=== PATIENT | female | born 2000 | race Caucasian/White ===

== ENCOUNTER 2023-02-01 21:00 | Emergency (ER) | payer OTHER ==
[~2023-02-01] VITALS: Ht 167.6 cm; Wt 62.7 kg
[2023-02-01] MEDS ORDERED: ACETAMINOPHEN 500 MG TAB PO ONE (22:25)
[2023-02-01] MEDS ORDERED: IBUP-1022 PO (23:10)
[2023-02-01] MEDS ORDERED: ONDA4TAB6 PO (23:10)
[2023-02-01 23:15] VITALS: BP 107/53
== END 2023-02-01 23:31 | disposition home or self-care (01) ==
LOC: M ED 21:00 → EDBD 21:00 → M ED 23:31
DX: J06.9 Acute upper respiratory infection, unspecified (principal); Z79.83 Long term (current) use of bisphosphonates; Z79.1 Long term (current) use of non-steroidal anti-inflammatories (NSAID)

== ENCOUNTER 2023-07-16 20:57 | Emergency (ER) | payer OTHER ==
[~2023-07-16] VITALS: Ht 170.2 cm; Wt 63.6 kg
[~2023-07-16 20:57] MED LIST: IBUP-1022 PO; ONDA4TAB6 PO
[2023-07-16 22:04] LABS: RSV AMPLIFICATION NEGATIVE (NEGATIVE)
[2023-07-16] MEDS ORDERED: BENZONATATE 100MG CAPSULE PO ONE (23:40)
[2023-07-16] MEDS ORDERED: AMOXICILLIN 500 MG CAP PO ONE (23:40)
[2023-07-16] MEDS ORDERED: BENZ200C70 PO (23:43)
[2023-07-16] MEDS ORDERED: AMOX875T PO (23:43)
[2023-07-16 23:51] VITALS: BP 134/74; TEMP 98.1; O2SAT 97
== END 2023-07-16 23:52 | disposition home or self-care (01) ==
LOC: M ED 20:57
DX: J02.9 Acute pharyngitis, unspecified (principal); Z79.2 Long term (current) use of antibiotics; Z79.899 Other long term (current) drug therapy

== ENCOUNTER 2023-10-17 09:42 | Emergency (ER) | payer OTHER ==
[~2023-10-17] VITALS: Ht 167.6 cm; Wt 63.1 kg
[~2023-10-17 09:42] MED LIST changes: +AMOX875T PO; +BENZ200C70 PO
[2023-10-17 10:59] LABS: RSV AMPLIFICATION NEGATIVE (NEGATIVE)
[2023-10-17] MEDS: ACETAMINOPHEN TAB 650MG DOSE (2X325MG) PO ONE (11:37)
[2023-10-17 11:50] VITALS: BP 121/73; TEMP 96.5; O2SAT 98
== END 2023-10-17 11:52 | disposition home or self-care (01) ==
LOC: M ED 09:42
DX: B34.8 Other viral infections of unspecified site (principal); F17.200 Nicotine dependence, unspecified, uncomplicated; F10.10 Alcohol abuse, uncomplicated

== ENCOUNTER 2023-11-14 07:39 | Emergency (ER) | payer OTHER ==
[~2023-11-14] VITALS: Ht 170.2 cm; Wt 61.9 kg
[2023-11-14 09:35] VITALS: TEMP 97.8
[2023-11-14] MEDS ORDERED: CYCL-707 PO (11:24)
[2023-11-14] MEDS ORDERED: IBUP-1022 PO (11:24)
[2023-11-14 11:32] VITALS: BP 128/66; O2SAT 99
== END 2023-11-14 11:33 | disposition home or self-care (01) ==
LOC: M ED 07:39
DX: S29.012A Strain of muscle and tendon of back wall of thorax, initial encounter (principal); X58.XXXA Exposure to other specified factors, initial encounter; Y92.89 Other specified places as the place of occurrence of the external cause; Y93.89 Activity, other specified; Y99.8 Other external cause status; F17.200 Nicotine dependence, unspecified, uncomplicated

== ENCOUNTER 2024-02-27 13:19 | Emergency (ER) | payer OTHER ==
[~2024-02-27] VITALS: Ht 167.6 cm; Wt 67.1 kg
[~2024-02-27 13:19] MED LIST changes: +CYCL-707 PO; +ONDA-282 PO; -ONDA4TAB6 PO
[2024-02-27] MEDS ORDERED: METH-1165 PO (15:24)
[2024-02-27] MEDS ORDERED: NAPR-837 PO (15:24)
[2024-02-27 15:30] VITALS: BP 126/62; TEMP 97.9; O2SAT 99
== END 2024-02-27 15:29 | disposition home or self-care (01) ==
LOC: M ED 13:19
DX: M54.50 Low back pain, unspecified (principal); Z79.1 Long term (current) use of non-steroidal anti-inflammatories (NSAID); Z79.899 Other long term (current) drug therapy